=== PATIENT | female | born 1940 | race Caucasian/White ===

== ENCOUNTER 2018-10-16 20:19 | Inpatient (IN) | payer MEDICARE, OTHER | END 2018-10-19 14:00 | disposition home or self-care (01) | LOC: EDH 20:19 → EDHIP 10-17 01:35 → 3AH 10-17 12:18 | DX: J10.00 Influenza due to other identified influenza virus with unspecified type of pneumonia (principal); J40 Bronchitis, not specified as acute or chronic; R09.02 Hypoxemia; E66.9 Obesity, unspecified; I48.0 Paroxysmal atrial fibrillation; Z79.01 Long term (current) use of anticoagulants; I48.2 Chronic atrial fibrillation ==

== ENCOUNTER 2021-06-23 08:08 | Observation (INO) | payer MEDICARE ==
[~2021-06-23] VITALS: Ht 154.9 cm; Wt 106.6 kg
[~2021-06-23 08:08] MED LIST: BENZ-17 PO; BUPR100T13 PO; CALC500T13 PO; CLON1TAB12 PO; FAMO20TA8 PO; GLUC100019 PO; HYDR50TA PO; KRIL1CAP19 PO; LEVO125 PO; LUTE1CAP4 PO; MILK175C5 PO; MULT-1192 PO; NIAC500T22 PO; RAMI10CA69 PO; WARF4TAB72 PO
[2021-06-23 08:46] LABS: BASOPHILS % (AUTO) 0.4 % (0.0-5.0); HEMATOCRIT 44.7 % (36-48); MEAN CORPUSCULAR HEMOGLOBIN 29.8 pg (27.0-33.0); MEAN CORPUSCULAR HGB CONC 32.9 g/dL (32.0-36.0); MEAN CORPUSCULAR VOLUME 90.7 fL (79-99); MONOCYTES % (AUTO) 8.1 % (3.0-13.0); NEUTROPHILS % (AUTO) 49.2 % (40.0-77.0); PLATELET COUNT (AUTO) 210 K/uL (130-400); RED BLOOD CELL COUNT(AUTO) 4.93 MIL/uL (4.00-5.50); RED CELL DISTRIBUTION WIDTH 13.4 % (11.0-15.5); WHITE BLOOD COUNT (AUTO) 10.8 K/uL (4.8-10.8)
[2021-06-23 09:03] LABS: BILIRUBIN,TOTAL 0.6 mg/dL (0.2-1.0); CREATININE 1.1 mg/dL (0.5-1.5); POTASSIUM 4.1 mmol/L (3.5-5.1)
[2021-06-23 09:05] LABS: INR 3.02 (0.85-1.15); PROTHROMBIN TIME 29.8 SEC (9.6-11.6)
[2021-06-23 09:06] LABS: PARTIAL THROMBOPLASTIN TIME 46.5 SEC (26.3-35.5)
[2021-06-23] MEDS ORDERED: 0.9%NACL 1000ML 1,000 ML IV STA (09:42)
[2021-06-23] MEDS ORDERED: 0.9%NACL 1000ML 1,000 ML IV ONE (11:30)
[2021-06-23] MEDS ORDERED: LACTULOSE 20 GM/30 ML UDCUP PO PRN (12:00)
[2021-06-23] MEDS ORDERED: ONDANSETRON 4MG INJ IVP PRN (12:00)
[2021-06-23] MEDS ORDERED: 0.9%NACL 1000ML 1,000 ML IV SCH (12:00)
[2021-06-23] MEDS ORDERED: ACETAMINOPHEN 325 MG TAB PO PRN ×2 (12:00)
[2021-06-23] MEDS ORDERED: METOPROLOL TARTRATE 1 MG/ML 5ML VIAL IV PRN (12:00)
[2021-06-23] MEDS ORDERED: HYDRALAZINE 20MG/ML VIAL IV PRN (12:00)
[2021-06-23] MEDS ORDERED: CLONIDINE HCL 0.1 MG TABLET PO PRN (12:00)
[2021-06-23] MEDS ORDERED: MIDODRINE HCL 5 MG TABLET PO SCH (14:00)
[2021-06-23 16:41] VITALS: BP 103/60
[2021-06-23 17:05] LABS: APPEARANCE,URINE Cloudy (CLEAR); BILIRUBIN,URINE Negative (NEGATIVE); COLOR,URINE Dark Yellow (YELLOW); GLUCOSE, URINE (UA) Negative (NEGATIVE); KETONES,URINE Trace mg/dL (NEGATIVE); LEUKOCYTE ESTERASE ,URINE Trace (NEGATIVE); NITRATE,URINE Negative (NEGATIVE); OCCULT BLOOD,URINE Negative (NEGATIVE); PROTEIN,URINE Negative (NEGATIVE)
[2021-06-23 17:11] LABS: BACTERIA,URINE Few /HPF (None Seen); MUCUS,URINE Few LPF (None Seen); RBC,URINE 0-1 /HPF (0-1); SQUAMOUS EPITHELIAL CELL,UR Few /HPF (0-2)
[2021-06-23] MEDS ORDERED: FAMOTIDINE 20MG TAB PO SCH (21:00)
== END 2021-06-23 20:05 | disposition home or self-care (01) ==
LOC: EDH 08:08 → EDHIP 11:38
PROVIDERS: ADMIT Internal Medicine Critical Care Medicine; ATTEND Internal Medicine Critical Care Medicine
DX: I95.9 Hypotension, unspecified (principal); I48.91 Unspecified atrial fibrillation; I10 Essential (primary) hypertension; E03.9 Hypothyroidism, unspecified; E78.5 Hyperlipidemia, unspecified; K21.9 Gastro-esophageal reflux disease without esophagitis; E66.9 Obesity, unspecified; G47.33 Obstructive sleep apnea (adult) (pediatric); E78.00 Pure hypercholesterolemia, unspecified; Z79.01 Long term (current) use of anticoagulants; Z79.890 Hormone replacement therapy; Z79.899 Other long term (current) drug therapy; Z98.890 Other specified postprocedural states; Z68.41 Body mass index [BMI] 40.0-44.9, adult
CPT/HCPCS: 36415; 71045; 80053; 81001; 85025; 85610; 85730; 93005 ×2; 96360; 96361; 99291; G0378 ×8

== ENCOUNTER 2022-02-22 14:00 | Emergency (ER) | payer MEDICARE ==
[~2022-02-22] VITALS: Ht 154.9 cm; Wt 99.8 kg
[2022-02-22 14:40] LABS: BASOPHILS % (AUTO) 0.2 % (0.0-5.0); EOSINOPHILS % (AUTO) 0.8 % (0.0-8.0); LYMPHOCYTES % (AUTO) 40.8 % (21.0-51.0); MEAN CORPUSCULAR HEMOGLOBIN 31.5 pg (27.0-33.0); MEAN CORPUSCULAR HGB CONC 34.4 g/dL (32.0-36.0); MEAN CORPUSCULAR VOLUME 91.6 fL (79-99); MONOCYTES % (AUTO) 7.2 % (3.0-13.0); NEUTROPHILS % (AUTO) 50.8 % (40.0-77.0); PLATELET COUNT (AUTO) 207 K/uL (130-400); RED BLOOD CELL COUNT(AUTO) 5.46 MIL/uL (4.00-5.50); WHITE BLOOD COUNT (AUTO) 12.4 K/uL (4.8-10.8)
[2022-02-22 14:57] LABS: ALBUMIN 3.6 g/dL (3.5-5.0); CREATININE 1.2 mg/dL (0.5-1.5); POTASSIUM 3.2 mmol/L (3.5-5.1); TOTAL PROTEIN, SERUM 7.4 g/dL (6.0-8.3)
[2022-02-22 15:28] LABS: MAGNESIUM 1.8 mg/dL (1.80-2.40); THYROID STIMULATING HORMONE 0.78 uIU/mL (0.36-3.74)
[2022-02-22 16:00] LABS: INR 1.84 (0.85-1.15); PROTHROMBIN TIME 19.4 SEC (9.6-11.6)
[2022-02-22] MEDS ORDERED: POTASSIUM BICARB/CIT AC 25 MEQ TABLET.EFF PO ONE (16:00)
[2022-02-22 16:01] LABS: PARTIAL THROMBOPLASTIN TIME 35.6 SEC (26.3-35.5)
[2022-02-22 17:11] VITALS: BP 145/82
== END 2022-02-22 18:05 | disposition home or self-care (01) ==
LOC: EDH 14:00
DX: I48.0 Paroxysmal atrial fibrillation (principal); E87.6 Hypokalemia; Z20.822 Contact with and (suspected) exposure to COVID-19; F41.9 Anxiety disorder, unspecified; F32.A Depression, unspecified; E78.00 Pure hypercholesterolemia, unspecified; I10 Essential (primary) hypertension; E03.9 Hypothyroidism, unspecified; Z88.8 Allergy status to other drugs, medicaments and biological substances; Z79.899 Other long term (current) drug therapy; Z79.01 Long term (current) use of anticoagulants; Z98.890 Other specified postprocedural states
CPT/HCPCS: 99285; 71045; 87635; 84443; 83735; 84484; 80053; 85025; 85610; 85730; 36415; 93005; C9803

== ENCOUNTER → 2022-08-24 | Outpatient (CLI) | payer MEDICARE | END | disposition home or self-care (01) | LOC: RAH 07:46 | PROVIDERS: ATTEND Family Medicine | DX: M47.22 Other spondylosis with radiculopathy, cervical region (principal); M48.02 Spinal stenosis, cervical region | CPT/HCPCS: 72141 ==

== ENCOUNTER → 2022-11-21 | Outpatient (CLI) | payer MEDICARE | END | disposition home or self-care (01) | LOC: RAH 12:02 | PROVIDERS: ATTEND Physical Medicine & Rehabilitation | DX: M75.111 Incomplete rotator cuff tear or rupture of right shoulder, not specified as traumatic (principal); M19.011 Primary osteoarthritis, right shoulder | CPT/HCPCS: 73030 ==

== ENCOUNTER → 2024-05-02 | Outpatient (CLI) | payer MEDICARE ==
[~2024-05-02] MED LIST changes: -RAMI10CA69 PO; +RAMI10CA76 PO
== END | disposition home or self-care (01) ==
LOC: RAH 13:09
PROVIDERS: ATTEND Internal Medicine Cardiovascular Disease
DX: I48.20 Chronic atrial fibrillation, unspecified (principal)
CPT/HCPCS: 93306

== ENCOUNTER 2024-05-10 14:00 | Observation (INO) | payer MEDICARE ==
[~2024-05-10] VITALS: Ht 152.4 cm; Wt 105.1 kg
[~2024-05-10 14:00] MED LIST changes: -BENZ-17 PO; -BUPR100T13 PO; -CALC500T13 PO; -CLON1TAB12 PO; -FAMO20TA8 PO; -GLUC100019 PO; -HYDR50TA PO; -KRIL1CAP19 PO; -LEVO125 PO; -MILK175C5 PO; -MULT-1192 PO; -NIAC500T22 PO; -WARF4TAB72 PO
[2024-05-10 14:52] LABS: BASOPHILS # (AUTO) 0.03 K/uL (0.00-0.20); BASOPHILS % (AUTO) 0.2 % (0.0-5.0); EOSINOPHILS # (AUTO) 0.09 K/uL (0.00-0.70); EOSINOPHILS % (AUTO) 0.7 % (0.0-8.0); HEMATOCRIT 51.2 % (36-48); IMMATURE GRANULOCYTE ABSOLUTE 0.04 K/uL (0-1); LYMPHOCYTES # (AUTO) 5.8 K/uL (1.0-4.8); LYMPHOCYTES % (AUTO) 47.1 % (21.0-51.0); MEAN CORPUSCULAR HEMOGLOBIN 31.1 pg (27.0-33.0); MEAN CORPUSCULAR HGB CONC 32.6 g/dL (32.0-36.0); MEAN CORPUSCULAR VOLUME 95.3 fL (79-99); MONOCYTES % (AUTO) 8.5 % (3.0-13.0); NEUTROPHILS # (AUTO) 5.3 K/uL (1.8-7.7); NEUTROPHILS % (AUTO) 43.2 % (40.0-77.0); PLATELET COUNT (AUTO) 242 K/uL (130-400); RED BLOOD CELL COUNT(AUTO) 5.37 MIL/uL (4.00-5.50); WHITE BLOOD COUNT (AUTO) 12.3 K/uL (4.8-10.8)
[2024-05-10 15:01] LABS: INR 1.08 (0.85-1.15); PROTHROMBIN TIME 11.6 SEC (9.6-11.6)
[2024-05-10 15:03] LABS: PARTIAL THROMBOPLASTIN TIME 29.6 SEC (26.3-35.5)
[2024-05-10 15:04] LABS: APPEARANCE,URINE CLEAR (CLEAR); BILIRUBIN,URINE NEGATIVE (NEGATIVE); COLOR,URINE LIGHT-YELLOW (YELLOW); GLUCOSE, URINE (UA) NEGATIVE (NEGATIVE); KETONES,URINE NEGATIVE (NEGATIVE); LEUKOCYTE ESTERASE ,URINE NEGATIVE Leu/uL (NEGATIVE); NITRATE,URINE NEGATIVE (NEGATIVE); OCCULT BLOOD,URINE NEGATIVE (NEGATIVE); PROTEIN,URINE NEGATIVE (NEGATIVE); UROBILINOGEN,URINE 0.2 mg/dL (0.2-1.0)
[2024-05-10 15:06] LABS: CREATININE 1.1 mg/dL (0.5-1.0); POTASSIUM 4.6 mmol/L (3.5-5.1)
[2024-05-10 15:08] VITALS: BP 170/92; PULSE 139; RESP 18; TEMP 97.5
[2024-05-10 15:08] LABS: ADD UA MICROSCOPIC NO
[2024-05-10 15:33] LABS: LYMPHOCYTES % (MANUAL) 56 % (22-44); MAN.DIFF COMMENT-IMPRESSION MANUAL DIFFERENTIAL; MONOCYTES % (MANUAL) 6 % (2-9); REACTIVE LYMPHOCYTES 4 % (0-0); SEGMENTED NEUTROPHILS % 34 % (40-70); TOTAL CELLS COUNTED 100
[2024-05-10 15:34] LABS: PLATELET MORPHOLOGY COMMENT ADEQUATE
[2024-05-10] MEDS ORDERED: CLON0.3T PO (15:35)
[2024-05-10] MEDS ORDERED: DILT180C47 PO (15:35)
[2024-05-10] MEDS ORDERED: BUPR-113 PO (15:35)
[2024-05-10] MEDS ORDERED: [UNRECOGNIZED DRUG - CODE] PO (15:42)
[2024-05-10] MEDS ORDERED: ROSU10TA72 PO (15:42)
[2024-05-10] MEDS ORDERED: [UNRECOGNIZED DRUG - OTHER] PO (15:42)
[2024-05-10] MEDS ORDERED: magnesium glycinate PO (15:42)
[2024-05-10] MEDS ORDERED: CHOL500045 PO (15:42)
[2024-05-10] MEDS ORDERED: THYR90TA12 PO (15:42)
[2024-05-10] MEDS ORDERED: potassium PO (15:42)
[2024-05-10] MEDS ORDERED: TOPI25TA48 PO (15:42)
[2024-05-10] MEDS ORDERED: APIX5TAB PO (15:42)
[2024-05-10] MEDS ORDERED: TUDCA PO (15:42)
[2024-05-10] MEDS ORDERED: COLLAGEN COMPLEX PO (15:42)
[2024-05-10] MEDS ORDERED: MAGNESIUM PO (15:42)
[2024-05-10] MEDS ORDERED: cranberry PO (15:42)
[2024-05-10] MEDS ORDERED: BARIATRIC MVI PO (15:42)
[2024-05-14] VITALS (25 sets, daily range): BP systolic 106–160; BP diastolic 53–83; PULSE 49–89; RESP 15–22; TEMP 97.1–99.1
[2024-05-14] MEDS: LACTATED RINGERS 1000ML 1,000 ML IV ONE (06:33)
[2024-05-14] MEDS ORDERED: ceFAZolin SODIUM 1 GM VIAL ONE (07:03)
[2024-05-14] MEDS ORDERED: BUPIvacaine HCL/EPINEPHrine/PF 0.25% 10ML VIAL IJ ONE ×2 (07:03→08:15)
[2024-05-14] MEDS ORDERED: TRANEXAMIC ACID 1000MG/10ML ONE (07:03)
[2024-05-14] MEDS: FAMOTIDINE 20MG VIAL IV ONE (07:07)
[2024-05-14] MEDS: acetaMINOPHEN 1,000 MG/100 ML VIAL IV ONE (07:07)
[2024-05-14] MEDS ORDERED: LIDOCAINE PF 100MG/5ML (2%) SYRINGE 5ML ONE (07:17)
[2024-05-14] MEDS ORDERED: proPOFol 10 MG/ML 20ML VIAL IV ONE (07:17)
[2024-05-14] MEDS ORDERED: rocuRONium bROMide 10MG/1ML 5ML VL ONE (07:17)
[2024-05-14] MEDS ORDERED: FENTanyl CITRate PF 50 MCG/1 ML 2ML VIAL ONE (07:17)
[2024-05-14] MEDS ORDERED: SUCCINYLCHOLINE CHLORIDE 20 MG/ML 10 ML VIAL ONE (07:21)
[2024-05-14] MEDS ORDERED: ROPivacaine 0.5% 5MG/ML 30ML ONE (07:22)
[2024-05-14] MEDS ORDERED: ketaMINE 50MG/ML SYRINGE 50 MG/ML DISP.SYRIN ONE (07:22)
[2024-05-14] MEDS ORDERED: BENZOCAINE 20% 57 GM SPRAY ONE (07:27)
[2024-05-14] MEDS ORDERED: dexaMETHasone SOD PHOSPHATE 10MG/ML 1ML VIAL ONE (07:55)
[2024-05-14] MEDS ORDERED: ondanSETRON 4MG INJ ONE (07:55)
[2024-05-14] MEDS: ceFAZolin SODIUM 2 GM VIAL ONE (08:00)
[2024-05-14] MEDS ORDERED: NEOSTIGMINE METHYLSULFATE 1MG/ML IV ONE (09:36)
[2024-05-14] MEDS ORDERED: GLYCOPYRROLATE 0.2 MG/ML 5 ML VIAL ONE (09:36)
[2024-05-14] MEDS ORDERED: PoTASSium chl 10% ELIXIR 20MEQ 20 MEQ/15 ML UDCUP PO PRN (10:00)
[2024-05-14] MEDS ORDERED: PoTASSium chloRIDE 20MEQ/100ML 100 ML IV PRN (10:00)
[2024-05-14] MEDS ORDERED: CALCIUM CARB 500MG PO PRN (10:00)
[2024-05-14] MEDS ORDERED: TEMAZepam 15 MG CAPSULE PO PRN (10:00)
[2024-05-14] MEDS ORDERED: PoTASSium chloRIDE 20MEQ ER 20 MEQ ERTAB PO PRN (10:00)
[2024-05-14] MEDS ORDERED: ondanSETRON 4MG INJ IVP PRN (10:00)
[2024-05-14] MEDS ORDERED: FERROUS FUMARATE 324 MG TABLET PO PRN (10:00)
[2024-05-14] MEDS ORDERED: DiphenhydrAMINE HCL 50 MG/ML VIAL IVP PRN (10:00)
[2024-05-14] MEDS: morPHINE 2 MG SYG ONE ×2 (10:21→10:34)
[2024-05-14] MEDS: ketOROlac 15MG/ML VIAL (15MG/ML) IV PRN (10:22)
[2024-05-14] MEDS: ketOROlac 15MG/ML VIAL (15MG/ML) ONE (10:22)
[2024-05-14] MEDS: 0.9%NACL 1000ML 1,000 ML IV SCH (11:34)
[2024-05-14] MEDS ORDERED: NP THYROID 120 MG PO SCH (12:30)
[2024-05-14] MEDS ORDERED: THYROID PORK 90 MG PO SCH (12:30)
[2024-05-14] MEDS: ceFAZolin SODIUM 1 GM VIAL IVPB SCH (16:10)
[2024-05-14] MEDS: HYDROcodone/APAP 5/325 1 TAB TABLET PO PRN (16:35)
[2024-05-14] MEDS: LISINOPRIL 20 MG TABLET PO SCH (20:14)
[2024-05-14] MEDS: cloNIDine HCL 0.3 MG TABLET PO SCH (20:16)
[2024-05-14] MEDS: FAMOTIDINE 20MG TAB PO SCH (20:17)
[2024-05-14] MEDS: buPROPion HCL 150 MG TABLET.SA PO SCH (20:17)
[2024-05-14] MEDS: APIXaban 5 MG TABLET PO SCH (20:17)
[2024-05-14] MEDS: dilTIAZem 180MG SR CAP PO SCH (20:17)
[2024-05-15] VITALS: BP 127/74; PULSE 66; RESP 19; TEMP 99.6
[2024-05-15 04:23] VITALS: BP 123/61; PULSE 66; RESP 18; TEMP 98.1
[2024-05-15 05:07] LABS: HEMATOCRIT 42.5 % (36-48); MEAN CORPUSCULAR HEMOGLOBIN 30.6 pg (27.0-33.0); MEAN CORPUSCULAR VOLUME 95.5 fL (79-99); RED BLOOD CELL COUNT(AUTO) 4.45 MIL/uL (4.00-5.50); RED CELL DISTRIBUTION WIDTH 12.6 % (11.0-15.5); WHITE BLOOD COUNT (AUTO) 16.3 K/uL (4.8-10.8)
[2024-05-15 05:10] LABS: CREATININE 1.2 mg/dL (0.5-1.0); POTASSIUM 4.4 mmol/L (3.5-5.1)
[2024-05-15 07:46] VITALS: BP 140/71; PULSE 56; RESP 18; TEMP 98.3
[2024-05-15 08:00] VITALS: BP 140/71; PULSE 56; RESP 18; TEMP 98.3; O2SAT 98
[2024-05-15] MEDS: topIRAMate 25 MG TABLET PO SCH (08:25)
[2024-05-15] MEDS: atorVAStatin 20 MG TABLET PO SCH (08:25)
[2024-05-15] MEDS: polyETHYLene GLYCol 3350 17 GM POWD.PACK PO SCH (08:26)
[2024-05-15 11:30] VITALS: BP 132/65; PULSE 59; RESP 18; TEMP 98.3
[2024-05-15 16:00] VITALS: BP 132/61; PULSE 60; RESP 16; TEMP 98.4
[2024-05-15] MEDS ORDERED: HYDR-4060 PO (16:51)
[2024-05-17] MEDS ORDERED: BisaCODYL 10 MG SUPP.RECT RC PRN (10:00)
== END 2024-05-15 18:30 | disposition home health service (06) ==
LOC: DAHIP 05-14 06:32 → 4BH 05-14 11:00
PROVIDERS: ADMIT Orthopaedic Surgery; ATTEND Orthopaedic Surgery
DX: M17.12 Unilateral primary osteoarthritis, left knee (principal); G89.29 Other chronic pain; E03.9 Hypothyroidism, unspecified; I10 Essential (primary) hypertension; E78.5 Hyperlipidemia, unspecified; I48.91 Unspecified atrial fibrillation; F32.A Depression, unspecified; Z79.899 Other long term (current) drug therapy
CPT/HCPCS: 80048 ×2; 85025; 85610; 85730; 87086; 81003; 36415 ×2; 87641; 64447; 27447; 96365; 96366 ×2; 88311; 88305; 97161; 97116 ×4; 97530 ×7; 93005; 85027; G0378 ×30; A4223 ×2; A4663; J7120 ×2; J3490 ×8; J3010; J0690 ×5; J1100; J0330; J2270 ×2; J2001; J2704; J2405; J2710; J2795; J1885; A9272; A4649 ×3; A4930 ×2; C1713; C1776; A5120; A4213; A4222; A4221; A4216; G0379; J2003

== ENCOUNTER → 2024-09-12 | Outpatient (CLI) | payer MEDICARE ==
[~2024-09-12] MED LIST changes: +APIX5TAB PO; +BARIATRIC MVI PO; +BUPR-113 PO; +CHOL500045 PO; +CLON0.3T PO; +COLLAGEN COMPLEX PO; +DILT180C47 PO; +ESCI10TA PO; +GADOTERATE MEGLUMINE 10 MMOL/20 ML VIAL IV ONE; +GLUC1KIT IJ; +HYDR-4060 PO; +MAGNESIUM PO; +ROSU10TA72 PO; +THYR90TA12 PO; +TOPI25TA48 PO; +TUDCA PO; +[UNRECOGNIZED DRUG - CODE] PO; +[UNRECOGNIZED DRUG - OTHER] PO; +cranberry PO; +magnesium glycinate PO; +potassium PO
--- NOTE | 2024-09-12 12:02 | HMCIMG ---
MR ABDOMEN W/WO CON REASON: E16.2 Hypoglycemia, unspecified COMPARISON: None TECHNIQUE: Routine imaging protocol was performed in the coronal and axial plane with T1, proton density, T2 and gradient recalled sequences. Images were also performed following gadolinium contrast, 20 cc Clariscan IV. FINDINGS: There are no focal liver lesions. Spleen, kidneys, gallbladder and pancreas appear normal. There are no focal fluid collections. There is no free fluid. Visualized bowel loops appear unremarkable. Postcontrast images show normal findings. This includes normal appearance of the pancreas. There are no focal masses. There are no focal areas of abnormal contrast enhancement. Portal and hepatic veins are patent as is the splenic vein. There is no MR evidence of pancreatitis. IMPRESSION: 1. Normal pre and postcontrast MRI of the abdomen with particular attention to the pancreas.
== END | disposition home or self-care (01) ==
LOC: RAH 07:36
PROVIDERS: ATTEND Family Medicine
DX: E16.2 Hypoglycemia, unspecified (principal)
CPT/HCPCS: 74183; A9575